=== PATIENT | female | born 1990 | race Caucasian/White ===

== ENCOUNTER → 2024-11-24 | Outpatient (CLI) | payer OTHER | LOC: M WHC 13:36 | PROVIDERS: ATTEND Family Medicine | DX: N63.20 Unspecified lump in the left breast, unspecified quadrant (principal) | CPT/HCPCS: 76641; 77066; G0279 ==

== ENCOUNTER → 2025-02-02 | Outpatient (CLI) | payer OTHER ==
[~2025-02-02] MED LIST: ARTH1TAB PO; OMEG10002 PO; PROHANCE 279.3MG/ML 15ML VIAL ONE; THERTAB52 PO
== END ==
LOC: M PLAIMG 07:57
PROVIDERS: ATTEND Family Medicine
DX: C50.812 Malignant neoplasm of overlapping sites of left female breast (principal); Z98.82 Breast implant status
CPT/HCPCS: A9576; C8908

== ENCOUNTER 2025-02-12 12:31 | Observation (INO) | payer OTHER ==
[~2025-02-12] VITALS: Ht 162.6 cm; Wt 71.3 kg
[~2025-02-12 12:31] MED LIST changes: -PROHANCE 279.3MG/ML 15ML VIAL ONE
[2025-02-12] MEDS ORDERED: dexmedeTOMIDine (4 MCG/ML) 200 MCG/50 ML BTL As Ordered ONE (12:45)
[2025-02-12] MEDS ORDERED: ONDANSETRON 4MG 2ML VIAL As Ordered ONE (12:45)
[2025-02-12] MEDS ORDERED: ROCURONIUM BROMIDE 50MG/5ML VIAL As Ordered ONE (12:45)
[2025-02-12] MEDS ORDERED: MIDAZOLAM INJ 2 MG/2 ML VIAL As Ordered ONE (12:45)
[2025-02-12] MEDS ORDERED: dexAMETHasone 4 MG/ML 1 ML VIAL As Ordered ONE (12:45)
[2025-02-12] MEDS ORDERED: LIDOCAINE 2% 100 MG/5 ML SDV (FOR ANES.) As Ordered ONE (12:48)
[2025-02-12] MEDS ORDERED: DOXY-441 PO (13:10)
[2025-02-12] MEDS ORDERED: HOME MED LIST COMPLETE! XX SCH (13:15)
[2025-02-12 13:48] LABS: PLATELET COUNT, AUTOMATED 247 10^3/uL (150-450)
[2025-02-12] MEDS: LR 1,000 ML IV SCH (13:55)
[2025-02-12 14:11] LABS: CALCIUM LEVEL 9.0 MG/DL (8.5-10.1); CARBON DIOXIDE LEVEL 25 MMOL/L (20-31); CHLORIDE LEVEL 108 MMOL/L (98-107); CREATININE FOR GFR 0.85 MG/DL (0.55-1.30); GLOMERULAR FILTRATION RATE > 90.0 (>60); POTASSIUM SERUM 4.3 MMOL/L (3.5-5.1); SODIUM LEVEL 142 MMOL/L (136-145)
[2025-02-12] MEDS: SCOPOLAMINE 1MG TRANSDERMAL PATCH TOP ONE (14:15)
[2025-02-12] MEDS ORDERED: ESMOLOL 100 MG/10 ML VIAL As Ordered ONE (14:53)
[2025-02-12] MEDS: ceFAZolin SOD 2 GM IV ONCE IV ONE (14:55)
[2025-02-12] MEDS ORDERED: LACRILUBE (AKWA TEARS) OPHTH OINT 3.5 GM As Ordered ONE (15:08)
[2025-02-12] MEDS: GENTAMICIN SULF 80 MG/2 ML VIAL As Ordered ONE (15:21)
[2025-02-12] MEDS ORDERED: PHENYLephrine 500MCG 5ML (100MCG/ML) SYRINGE As Ordered ONE (15:30)
[2025-02-12] MEDS ORDERED: ACETAMINOPHEN 1000MG/100ML IV BAG As Ordered ONE (15:33)
[2025-02-12] MEDS ORDERED: SUGAMMADEX SODIUM 500 MG/5 ML VIAL As Ordered ONE (15:33)
[2025-02-12] MEDS ORDERED: HYDROmorphone HCL 2 MG/ML 1 ML VIAL As Ordered ONE (15:40)
[2025-02-12] MEDS ORDERED: ACETAMINOPHEN 325 MG TAB PO PRN (19:50)
[2025-02-12] MEDS ORDERED: ONDANSETRON 4MG 2ML VIAL IV PRN (20:00)
[2025-02-12] MEDS: PROMETHAZINE 25MG/ML 1ML VIAL IV PRN (20:32)
[2025-02-12 21:20] VITALS: BP 108/72; TEMP 97.5; O2SAT 98
[2025-02-12 21:50] VITALS: BP 107/59; TEMP 97; O2SAT 92
[2025-02-12] MEDS: DOCUSATE SODIUM 100 MG CAPSULE PO SCH (22:24)
[2025-02-12] MEDS: ceFAZolin SODIUM 2 GM in DEXTROSE 5% (D5W) ADV/MINI-BAG 50 ML IV SCH (22:24)
[2025-02-12] MEDS: traMADol 50 MG TAB PO PRN (22:28)
[2025-02-12 22:30] VITALS: BP 100/56; O2SAT 96
[2025-02-12 23:30] VITALS: BP 97/62; TEMP 98.1; O2SAT 98
[2025-02-13 00:30] VITALS: BP 97/58; TEMP 97.7; O2SAT 98
[2025-02-13 01:27] VITALS: BP 97/58; TEMP 98.1; O2SAT 98
[2025-02-13 02:30] VITALS: BP 96/57; TEMP 98.1; O2SAT 98
[2025-02-13 06:41] VITALS: BP 103/56; TEMP 97.5; O2SAT 98
[2025-02-13 10:00] VITALS: BP 90/50; TEMP 97.7; O2SAT 97
[2025-02-13] MEDS ORDERED: OXYC-517 PO (11:16)
== END 2025-02-13 14:50 | disposition home or self-care (01) ==
LOC: M SDC 12:31 → M MS5PR 12:32
PROVIDERS: ADMIT Surgery; ATTEND Surgery
DX: C50.912 Malignant neoplasm of unspecified site of left female breast (principal); Z17.411 Hormone receptor positive with human epidermal growth factor receptor 2 negative status
CPT/HCPCS: 19120; 19303; 19357; 36415; 38525; 38900; 76000; 80048; 81025; 85027; 88305; 88307; 96365; 96366; A9520; C1789; J0131; J0665; J0666; J0690; J1100; J1171; J1580; J1805; J2250; J2371; J2405; J2550; J2765; J3010

== ENCOUNTER → 2025-04-07 | Outpatient (CLI) | payer OTHER ==
[~2025-04-07] MED LIST changes: +DEXA4TA PO; +DOXY-441 PO; +ONDA-84 PO; +OXYC-517 PO; +PROC10TA5 PO
== END ==
LOC: M IRPRO 08:49
PROVIDERS: ATTEND Internal Medicine Medical Oncology
DX: C50.919 Malignant neoplasm of unspecified site of unspecified female breast (principal)
CPT/HCPCS: 36569; C1751

== ENCOUNTER 2025-04-10 20:09 | Emergency (ER) | payer OTHER ==
[~2025-04-10] VITALS: Ht 162.6 cm; Wt 70.0 kg
[2025-04-10 20:14] VITALS: TEMP 97.1
[2025-04-10] MEDS: NS (Normal Saline) 0.9% 1,000 ML IV SCH (21:22)
[2025-04-10 21:31] LABS: PLATELET COUNT, AUTOMATED 265 10^3/uL (150-450)
[2025-04-10 21:40] LABS: KETONE, URINE AUTO RFX NEGATIVE (NEGATIVE); LEUKOCYTE ESTERASE UR AUTO RFX NEGATIVE (NEGATIVE); MUCUS, URINE RFX SMALL (NEGATIVE); NITRITE, URINE AUTO RFX NEGATIVE (NEGATIVE); RBC, URINE AUTO RFX 1 /HPF (0-3); SQUAM EPITHELIAL CELL UR AURFX 2 /HPF (0-6); WBC, URINE AUTO RFX 2 /HPF (0-3)
[2025-04-10 22:02] LABS: ALT/SGPT 19 U/L (7.0-40); AST/SGOT 23 U/L (<34); CALCIUM LEVEL 8.7 MG/DL (8.5-10.1); CARBON DIOXIDE LEVEL 27 MMOL/L (20-31); CHLORIDE LEVEL 106 MMOL/L (98-107); CREATININE FOR GFR 0.72 MG/DL (0.55-1.30); GLOMERULAR FILTRATION RATE > 90.0 (>60); POTASSIUM SERUM 4.1 MMOL/L (3.5-5.1); SODIUM LEVEL 141 MMOL/L (136-145)
[2025-04-10 22:05] LABS: LYMPHOCYTES 1 % (16-44); METAMYELOCYTES 1 % (0-0); MONOCYTES 4 % (0-5); NEUTROPHILS 92 % (28-66)
[2025-04-10 22:06] LABS: PLATELET ESTIMATE NORMAL (NORMAL)
[2025-04-10 22:20] LABS: HCG, SERUM QUALITATIVE NEGATIVE (NEGATIVE)
[2025-04-10] MEDS ORDERED: ISOVUE-370 76% 100 ML VIAL As Ordered ONE (22:22)
[2025-04-10 23:30] VITALS: BP 99/65; O2SAT 99
== END 2025-04-11 00:18 | disposition home or self-care (01) ==
LOC: M ED 20:09
DX: R10.30 Lower abdominal pain, unspecified (principal); Z85.3 Personal history of malignant neoplasm of breast; Z79.899 Other long term (current) drug therapy
CPT/HCPCS: 74177; 80048; 80076; 81001; 83690; 84703; 85025; 93041; 99284; Q9967